=== PATIENT | male | born 1995 | race Caucasian/White ===

== ENCOUNTER 2019-04-20 21:08 | Emergency (ER) | payer OTHER ==
[~2019-04-20] VITALS: Ht 172.7 cm; Wt 71.7 kg
--- NOTE | 2019-04-20 21:15 | NUR ---
ED Nurse Note: Patient in chair 1. Await review.
[2019-04-20 21:17] VITALS: BP 143/92
--- NOTE | 2019-04-20 22:00 | NUR ---
ED Nurse Note: Patient await review following CT scan
--- NOTE | 2019-04-20 22:37 | Diagnostic Imaging Report ---
EXAM: CT Head Without Intravenous Contrast CLINICAL HISTORY: H A TECHNIQUE: Axial computed tomography images of the head brain without intravenous contrast. CTDI is 60 mGy and DLP is 1334.1 mGy-cm. One or more of the following dose reduction techniques were used: automated exposure control, adjustment of the mA and or kV according to patient size, use of iterative reconstruction technique. COMPARISON: No relevant prior studies available. FINDINGS: Brain: Unremarkable. No acute hemorrhage, large hypodensity, or significant mass effect. Ventricles: Unremarkable. No ventriculomegaly. Bones joints: Unremarkable. No acute fracture. Soft tissues: Unremarkable. Sinuses: Unremarkable. Mastoid air cells: Unremarkable. IMPRESSION: No acute intracranial abnormality.
[2019-04-20] MEDS ORDERED: IBUPROFEN600 MG ORAL (23:16)
[2019-04-20] MEDS ORDERED: LIDODERM700 M1 TOPIC (23:16)
[2019-04-20] MEDS ORDERED: ROBAXIN-750750 MG PO (23:16)
--- NOTE | 2019-04-20 23:32 | NUR ---
ER DISCHARGE NOTE: Patient is cleared to be discharged per ERMD, pt is aox4, on room air, with stable vital signs. pt was given dc and prescription instructions, pt was able to verbalize understanding, pt id band removed. pt is able to ambulate with steady gait. pt took all belongings.
[2019-04-20 23:35] VITALS: BP 142/82
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
== END 2019-04-20 23:35 | disposition home or self-care (01) ==
LOC: EMR 21:35
DX: S09.90XA Unspecified injury of head, initial encounter (principal); S16.1XXA Strain of muscle, fascia and tendon at neck level, initial encounter; V43.52XA Car driver injured in collision with other type car in traffic accident, initial encounter; Y92.410 Unspecified street and highway as the place of occurrence of the external cause
CPT/HCPCS: 70450; 99284